=== PATIENT | male | born 1995 | race Caucasian/White ===

== ENCOUNTER 2022-01-08 22:21 | Emergency (ER) | payer MEDICAID ==
[~2022-01-08] VITALS: Ht 190.5 cm; Wt 81.6 kg
--- NOTE | 2022-01-08 22:30 | NUR ---
OXYGEN INH AT 2LPM PRN s/p SEIZURE
--- NOTE | 2022-01-08 22:30 | NUR ---
[id number] FROM [facility] FOR WITNESSED 2 MIN TONIC CLONIC SEIZURE +HEADACHE -HEAD TRUAMA. PATIENT ALERT AND ORIENTED X2. AMBULATORY WITH NON LABORED BREATHING. PATIENT IN BED 10 ON MONITOR
--- NOTE | 2022-01-08 22:35 | NUR ---
BLOOD DRAWN AND SENT TO LAB
--- NOTE | 2022-01-08 22:37 | NUR ---
BS 113
--- NOTE | 2022-01-08 22:42 | NUR ---
KILN STOKER AT BEDSIDE
--- NOTE | 2022-01-08 22:42 | NUR ---
DMITRIY (MENTOR) [phone] ALTON (COURT REGISTRY OFFICER) [phone]
[2022-01-08 22:56] LABS: BASOPHILS # (AUTO) 0.1 K/uL (0.0-0.2); EOSINOPHILS % (AUTO) 1.5 % (0.0-6.0); HEMATOCRIT 42 % (39-51); LYMPHOCYTES # (AUTO) 1.3 K/uL (0.8-4.8); LYMPHOCYTES % (AUTO) 24.7 % (20.0-44.0); MEAN CORPUSCULAR HGB CONC 34 g/dl (31.0-36.0); MEAN CORPUSCULAR VOLUME 93 fL (80-96); MONOCYTES # (AUTO) 0.8 K/uL (0.1-1.30); MONOCYTES % (AUTO) 16.4 % (2.0-12.0); NEUTROPHILS # (AUTO) 2.8 K/uL (1.8-8.9); NEUTROPHILS % (AUTO) 56.4 % (43.0-81.0); PLATELET COUNT (AUTO) 199 K/uL (150-450); RED BLOOD CELL COUNT(AUTO) 4.47 MIL/uL (4.5-6.0); WHITE BLOOD COUNT (AUTO) 5.1 K/uL (4.3-11.0)
--- NOTE | 2022-01-08 22:56 | NUR ---
PT TAKEN TO RADIOLOGY FOR CT SCAN OF BRAIN W/O CONTRAST.
--- NOTE | 2022-01-08 23:13 | NUR ---
urine sent to lab
[2022-01-08 23:40] LABS: CALCIUM, SERUM 8.6 mg/dL (8.5-10.1); CARBON DIOXIDE 26 mmol/L (21-32); CHLORIDE 101 mmol/L (98-107); CREATININE 0.9 mg/dL (0.6-1.3); GLUCOSE 109 mg/dL (74-106); POTASSIUM 3.7 mmol/L (3.5-5.1); SODIUM SERUM 135 mmol/L (136-145); UREA NITROGEN, BLOOD 12 mg/dL (7-18)
[2022-01-08 23:45] LABS: ALANINE AMINOTRANSFERASE 80 U/L (12-78); ALBUMIN 3.5 g/dL (3.4-5.0); ALCOHOL, BLOOD < 3 mg/dL (0-0); ALKALINE PHOSPHATASE 50 U/L (46-116); ASPARTATE AMINOTRANSFERASE 40 U/L (15-37); BILIRUBIN,DIRECT 0.1 mg/dL (0.0-0.2); BILIRUBIN,TOTAL 0.3 mg/dL (0.2-1.0); TOTAL PROTEIN, SERUM 7.1 g/dL (6.4-8.2)
--- NOTE | 2022-01-09 00:08 | NUR ---
GEOVANI - [phone] - [facility] / [phone] - CELLPHONE. CALL FOR PROJECT MANAGEMENT PROFESSIONAL
[2022-01-09 00:28] LABS: BILIRUBIN,URINE NEGATIVE (NEGATIVE); COLOR,URINE YELLOW (YELLOW); LEUKOCYTE ESTERASE ,URINE NEGATIVE (NEGATIVE); NITRITE, URINE NEGATIVE (NEGATIVE); PH,URINE 6.5 (5.0-8.0); PROTEIN,URINE NEGATIVE (NEGATIVE); UGLUCOSE NEGATIVE (NEGATIVE); UROBILINOGEN,URINE 0.2 EU/dL (0.2)
[2022-01-09 00:46] VITALS: BP 134/66
--- NOTE | 2022-01-09 01:02 | NUR ---
Vanessa thao pt is cleared to go back for treatment continuation. eta 30min
--- NOTE | 2022-01-09 01:45 | NUR ---
Patient discharged to home in stable condition. Written and verbal after care instructions given. Patient verbalizes understanding of instruction. IV removed. Catheter intact and site benign. Pressure and 4x4 applied to site. No bleeding noted.
[2022-01-09 12:19] LABS: EOSINOPHILS % (MANUAL) 1 % (0-4); LYMPHOCYTES % (MANUAL) 28 % (16-48); MONOCYTES % (MANUAL) 18 % (0-11.0); NEUTROPHILS % (MANUAL) 53 (42-76)
== END 2022-01-09 01:45 | disposition home or self-care (01) ==
LOC: ER 22:27
DX: R56.9 Unspecified convulsions (principal)
CPT/HCPCS: 36415; 70450-TC; 71045-TC; 80048-TC; 80076-TC; 85025-TC; 85730-TC; G0480